=== PATIENT | female | born 1985 ===

== ENCOUNTER 2017-07-17 16:45 | Emergency (ER) | payer OTHER ==
[2017-07-17 17:17] VITALS: BP 120/74; PULSE 93; RESP 16; TEMP 98.5; O2SAT 100
--- NOTE | 2017-07-17 18:16 | ED PDOC ---
HPI: CCC, URI, Sore Throat Time Seen by Provider: 07/17/17 16:45 Chief Complaint (Nursing): ENT Problem Chief Complaint (Provider): ENT Problem History Per: Patient History/Exam Limitations: no limitations Onset/Duration Of Symptoms: Persistent (x1 week) Current Symptoms Are (Timing): Still Present Associated Symptoms: Sore Throat, Cough. denies: Fever, Chills Additional Complaint(s): 32 year old female presents to the emergency department with a complaint of sore throat associated with a mild cough and neck swelling ongoing for 1 week. She denied any fever or chills. PMD: none provided Past Medical History Reviewed: Historical Data, Nursing Documentation, Vital Signs Vital Signs: Last Vital Signs Temp 98.5 F 07/17/17 17:15 Pulse 93 H 07/17/17 17:15 Resp 16 07/17/17 17:15 BP 120/74 07/17/17 17:15 Pulse Ox 100 07/17/17 18:26 - Medical History PMH: No Chronic Diseases - Surgical History Surgical History: No Surg Hx - Family History Family History: States: Unknown Family Hx - Social History Current smoker - smoking cessation education provided: No Alcohol: None Drugs: Denies - Immunization History Hx Tetanus Toxoid Vaccination: (not sure) - Home Medications Home Medications: Ambulatory Orders Medication Instructions Recorded Ibuprofen [Motrin] 600 mg PO Q6H PRN #15 tab 02/04/15 Naproxen [Naprosyn] 500 mg PO BID PRN #30 tab 08/20/16 - Allergies Allergies/Adverse Reactions: Allergies Allergy/AdvReac Type Severity Reaction Status Date / Time No Known Allergies Allergy Verified 07/17/17 17:15 Review of Systems ROS Statement: Except As Marked, All Systems Reviewed And Found Negative Constitutional: Negative for: Fever, Chills ENT: Positive for: Throat Pain, Throat Swelling Respiratory: Positive for: Cough (mild) Physical Exam - Reviewed Nursing Documentation Reviewed: Yes Vital Signs Reviewed: Yes - Physical Exam Appears: Positive for: Non-toxic, No Acute Distress ENT: Positive for: Normal ENT Inspection, TM Is/Are (clear bilaterally), Other ( enlarged thyroid noted). Negative for: Pharyngeal Erythema, Tonsillar Exudate Neck: Positive for: Painless ROM, Supple Cardiovascular/Chest: Positive for: Regular Rate, Rhythm, Chest Non Tender Respiratory: Positive for: Normal Breath Sounds. Negative for: Decreased Breath Sounds, Respiratory Distress Neurologic/Psych: Positive for: Alert (x3), Oriented - ECG O2 Sat by Pulse Oximetry: 100 (RA) Pulse Ox Interpretation: Normal - Progress ED Course And Treament: RAPID STREP: NEG Medical Decision Making Medical Decision Making: Initial Impression: Throat pain Initial Plan: * Rapid strep Time: 5 --Discussed with patient the need for outpatient care to follow up for enlarged thyroid palpated in ED with a thyroid ultrasound. Scribe Attestation: Documented by Brooke Whitehead, acting as a scribe for Harjit Grigsby PA-C. Provider Scribe Attestation: All medical record entries made by the Scribe were at my direction and personally dictated by me. I have reviewed the chart and agree that the record accurately reflects my personal performance of the history, physical exam, medical decision making, and the department course for this patient. I have also personally directed, reviewed, and agree with the discharge instructions and disposition. Disposition - Clinical Impression Clinical Impression: Sore throat - Patient ED Disposition Is Patient to be Admitted: No - Disposition Referrals: [facility] [Outside] Disposition: Routine/Home Disposition Time: 19:07 Condition: FAIR Instructions: Sore Throat, Adult (DC) Forms: [employer] (Albanian), [facility] ED School/Work Excuse Print Language: PORTUGUESE
== END 2017-07-17 19:38 | disposition home or self-care (01) ==
LOC: H.ER 16:45
DX: J02.9 Acute pharyngitis, unspecified (principal)

== ENCOUNTER 2018-03-07 14:19 | Observation (INO) | payer MEDICAID, SELFPAY ==
--- NOTE | 2018-03-07 15:36 | ED PDOC ---
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 Otherwise, denies hx of previous symptoms, sick contacts, ear pain, throat pain, chest pain, difficulty breathing, fever, vomiting, and abdominal pain. PMD: [facility] Past Medical History Reviewed: Historical Data, Nursing Documentation, Vital Signs Vital Signs: Last Vital Signs Temp 98.5 F 03/07/18 14:34 Pulse 89 03/07/18 14:34 Resp 16 03/07/18 14:34 BP 115/74 03/07/18 14:34 Pulse Ox 98 03/07/18 14:34 - Medical History PMH: No Chronic Diseases - Surgical History Surgical History: No Surg Hx - Family History Family History: States: Unknown Family Hx - Immunization History Hx Tetanus Toxoid Vaccination: (not sure) - Home Medications Home Medications: Ambulatory Orders Medication Instructions Recorded Amoxicillin/Clavulanate [Augmentin 1 tab PO Q12 #20 tab 03/08/18 875 MG-125 MG] - Allergies Allergies/Adverse Reactions: Allergies Allergy/AdvReac Type Severity Reaction Status Date / Time No Known Allergies Allergy Verified 03/08/18 05:17 Review of Systems ROS Statement: Except As Marked, All Systems Reviewed And Found Negative Constitutional: Positive for: Chills. Negative for: Fever ENT: Positive for: Other (difficulty swallowing). Negative for: Ear Pain, Thr oat Pain Cardiovascular: Negative for: Chest Pain Respiratory: Negative for: Other (trouble breathing) Gastrointestinal: Positive for: Nausea. Negative for: Vomiting, Abdominal Pain Musculoskeletal: Positive for: Neck Pain (and swelling ) Physical Exam - Reviewed Nursing Documentation Reviewed: Yes Vital Signs Reviewed: Yes - Physical Exam Appears: Positive for: No Acute Distress Head Exam: Positive for: ATRAUMATIC, NORMOCEPHALIC Skin: Positive for: Normal Color, Warm, Dry Eye Exam: Positive for: Normal appearance ENT: Positive for: Pharynx Is (erythematous), TM Is/Are (normal bilaterally), Tonsillar Swelling (and erythema bilaterally), Other (floor of mouth soft, not elevated). Negative for: Tonsillar Exudate Neck: Positive for: Painless ROM, Trachea Midline. Negative for: Normal (tender and swollen midline of anterior neck under mandible), Limited ROM, Pain On Movement Of Neck Cardiovascular/Chest: Positive for: Regular Rate, Rhythm Respiratory: Positive for: Normal Breath Sounds. Negative for: Accessory Muscle Use, Respiratory Distress Pulses-Radial (L): 2+ Pulses-Radial (R): 2+ Gastrointestinal/Abdominal: Positive for: Normal Exam, Bowel Sounds (normoactive), Soft. Negative for: Tenderness Back: Positive for: Normal Inspection Extremity: Positive for: Normal ROM, Capillary Refill (<2s). 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 Negative for: Motor/Sensory Deficits - Laboratory Results Result Diagrams: 03/08/18 05:15 03/07/18 16:57 - ECG O2 Sat by Pulse Oximetry: 98 (RA) Pulse Ox Interpretation: Normal Medical Decision Making Medical Decision Making: Time: 1533 Initial Impression: neck swelling and pain, r/o strep, abscess Initial Plan: --Rapid strep --Evaluation by Dr. Spencer 1547 Dr. Spencer at bedside who recommends CT maxillofacial and CT neck soft tissue with contrast. Additionally, CMP, CBC with differential, UA, U-preg, and blood culture ordered. Strep: negative CBC: mild leukocytosis CMP: wnl UA: blood and leuk esterase, likely contaminated Spoke with Dr. Hernandez, who recommends initiation of antibiotic, will give Clindamycin and Zosyn [address] CT Maxillofacial FINDINGS: BONES: No acute fracture or aggressive appearing osseous lesion. The mandible is intact. SOFT TISSUES: There is a rounded cystic mass measuring approximately 2.3 x 1.6 cm within the soft tissues anterior to the thyroid cartilage and at the approximate level of the thyroid gland with some surrounding him infiltration of the fat. SINUSES: The sinuses are clear. ORBITS: The orbits are normal. No retrobulbar hematoma or mass. IMPRESSION: No acute osseous abnormality demonstrated. Cystic mass measuring approximately 2.3 x 1.6 cm with some surrounding inflammatory changes suspected anterior to the thyroid cartilage and this may represent an infected thyroglossal duct cyst. Other etiologies are less likely. Close clinical correlation is advised. 1959 CT Neck Soft Tissue FINDINGS: PHARYNX: Unremarkable appearance of the nasopharynx, oropharyx, and hypopharynx. No pharyngeal mucosal based mass lesions. LARYNX: Normal appearance of the larynx. Unremarkable epiglottis. RETROPHARYNGEAL SPACE: No retropharyngeal soft tissue swelling or gas. SALIVARY GLANDS: Unremarkable appearance of the parotid, submandibular, and sublingual glands. LYMPH NODES: No significant lymphadenopathy. THYROID: The thyroid gland is unremarkable. No nodule is evident. There is a cystic mass measuring approximately 2.2 x 1.4 cm anterior to the thyroid cartilage just above the level of the thyroid gland in the midline with some surrounding inflammatory changes likely representing an infected thyroglossal duct cyst. There is a prominent lymph node measuring 8 mm at the right submental region. BONES: No acute osseous abnormality. No aggressive appearing osseous lesion. IMPRESSION: There is a cystic mass measuring approximately 2.2 x 1.4 cm anterior to the th yroid cartilage just above the level of the thyroid gland likely representing a thyroglossal duct cyst with mild surrounding inflammatory change. Close clinical correlation is advised. 21:[address] Hernandez, who recommends admission for observation through hospitalist service, will see patient in the morning for drainage of cyst. 21:[address] José, who accepts pt for admission to med-surg floor with consult from Dr. Hernandez in the morning for US-guided drainage of thyroglossal duct cyst. Impression: Infected Thyroglossal Duct Cyst Plan: Admission to med-surg floor for US-guided drainage of cyst in the morning Scribe Attestation: Documented by Katty Lu, acting as a scribe for Alena Motter, PA-C Provider Scribe Attestation: All medical record entries made by the Scribe were at my direction and personally dictated by me. I have reviewed the chart and agree that the record accurately reflects my personal performance of the history, physical exam, medic al decision making, and the department course for this patient. I have also personally directed, reviewed, and agree with the discharge instructions and disposition. Disposition - Clinical Impression Clinical Impression: Infection of thyroglossal duct - Patient ED Disposition Is Patient to be Admitted: Yes Discussed With : Jaxson Hernandez Doctor Will See Patient In The: Hospital Counseled Patient/Family Regarding: Studies Performed, Diagnosis - Disposition Disposition Time: 21:00 Condition: GOOD
[2018-03-07 17:14] LABS: BASO # 0.1 K/uL (0.0-0.2); BASO % 0.4 % (0.0-2.0); EOS # 0.2 K/uL (0.0-0.7); HEMOGLOBIN 14.2 g/dL (12.0-16.0); LYMPH # 2.6 K/uL (1.0-4.3); LYMPH % 21.8 % (20.0-40.0); MEAN CELL VOLUME 76.2 fl (81.0-99.0); MEAN CORPUSCULAR HEMOGLOBIN 25.5 pg (27.0-31.0); MEAN CORPUSCULAR HGB CONC 33.5 g/dL (33.0-37.0); MEAN PLATELET VOLUME 8.9 fl (7.2-11.7); MONO % 8.6 % (0.0-10.0); NEUT # 7.9 K/uL (1.8-7.0); NEUT % 67.2 % (50.0-75.0); RBC 5.56 Mil/uL (3.80-5.20); RED CELL DISTRIBUTION WIDTH 14.4 % (11.5-14.5); WHITE BLOOD COUNT 11.8 K/uL (4.8-10.8)
[2018-03-07] MEDS ORDERED: Iohexol 300 100 ML IJ ONE (17:14)
[2018-03-07] MEDS ORDERED: Sodium Chloride 0.9% 50 ML IV ONE (17:14)
[2018-03-07] MEDS ORDERED: Piperacillin/Tazobact 3.375 GM in Sodium Chloride 0.9% 100 ML IVPB STA (17:17)
[2018-03-07 17:22] LABS: ALB/GLOB RATIO 1.2 (1.0-2.1); ALBUMIN 4.3 g/dL (3.5-5.0); ALT/SGPT 33 U/L (9-52); AST/SGOT 32 U/L (14-36); BLOOD UREA NITROGEN 16 mg/dl (7-17); CALCIUM 9.3 mg/dL (8.4-10.2); GFR NON-AFRICAN AMERICAN > 60
[2018-03-07 17:31] LABS: SQUAMOUS EPITHIAL 43 /hpf (0-5); URINE BACTERIA RARE (<OCC); URINE BILIRUBIN NEGATIVE (NEGATIVE); URINE BLOOD LARGE (NEGATIVE); URINE CLARITY CLOUDY (Clear); URINE COLOR YELLOW (YELLOW); URINE GLUCOSE (UA) NEG (Normal); URINE LEUKOCYTE ESTERASE MOD Leu/uL (Negative); URINE PROTEIN NEGATIVE (NEGATIVE)
[2018-03-07] MEDS ORDERED: Piperacillin/Tazobact 3.375 gm Inj IVPB ONE (17:46)
[2018-03-07] MEDS ORDERED: Clindamycin 600mg/50ml D5W 600 MG/50 ML VIAL IVPB STA (17:59)
[2018-03-07] MEDS ORDERED: Dextrose 5%/0.9% NS 1,000 ML IV ONE (21:59)
--- NOTE | 2018-03-07 22:12 | CP.PCM.HP ---
History of Present Illness - History of Present Illness History of Present Illness: This is 32 y/o female with no significant PMH/PSH admitted to [facility] for evaluation and treatment of 3 days history of anterior neck pain. As per patient it started all the sudden, 8-9/10 in severity, no alleviating factors (tylenol/motrin), aggravated by talking and swallowing, associated with b/l ears discomfort and nausea. denies any trauma, fever, vomiting, dizziness, chest pain, SOB, abdominal pain, urinary symptoms or weakness. Denies sick contact, no recent travel PMH: Denies PSH: Denies Allg: NKDA Meds: Denies FH: Denies any cancers or heart conditions SH: Denies alcohol, smoking or drug use ROS: As per HPI ER course: VS: 98.5, 89, 16, 115/74, spo2 98 CBC: wbc 11.8 CMP: stable Rapid strep negative UA reviewed Maxillofacial CT, soft tissu neck CT: cystic mass 2.2 x 1.4 cm anterior to the thyroid cartilage, representing a thyroglossal duct cyst with mild surrounding inflammatory change Present on Admission - Present on Admission Any Indicators Present on Admission: No Past Patient History - Past Social History Smoking Status: Never Smoked - PSYCHIATRIC Hx Substance Use: No - SURGICAL HISTORY Hx Surgeries: No - ANESTHESIA Hx Anesthesia: No Meds Allergies/Adverse Reactions: Allergies Allergy/AdvReac Type Severity Reaction Status Date / Time No Known Allergies Allergy Verified 03/07/18 14:34 Physical Exam - Constitutional Appears: No Acute Distress - Head Exam Head Exam: NORMAL INSPECTION - Eye Exam Eye Exam: EOMI, Normal appearance, PERRL - ENT Exam ENT Exam: Mucous Membranes Moist, Normal External Ear Exam (mildly irritated red ears, no sign of otitis media/exter) Additional comments: oropharynx: mild erythema with Posterior pharyngeal swelling - Neck Exam Neck exam: Positive for: Tenderness Additional comments: Cystic mass below the jaw, movement and pain with swallowing, tender to touch, minimum external skin erythema/ no open wound - Respiratory Exam Respiratory Exam: Clear to Auscultation Bilateral, NORMAL BREATHING PATTERN. absent: Accessory Muscle Use, Chest Wall Tenderness, Prolonged Expiratory Phase, Rhonchi, Wheezes - Cardiovascular Exam Cardiovascular Exam: REGULAR RHYTHM, +S1, +S2 - GI/Abdominal Exam GI & Abdominal Exam: Normal Bowel Sounds, Soft. absent: Tenderness - Extremities Exam Extremities exam: Positive for: normal capillary refill, normal inspection, pedal pulses present. Negative for: pedal edema, tenderness - Back Exam Back exam: NORMAL INSPECTION. absent: CVA tenderness (L), CVA tenderness (R) - Neurological Exam Neurological exam: Alert, CN II-XII Intact, Oriented x3 - Psychiatric Exam Psychiatric exam: Normal Affect - Skin Skin Exam: Dry, Intact, Normal Color, Warm Results - Vital Signs Recent Vital Signs: Last Vital Signs Temp 98.5 F 03/07/18 14:34 Pulse 89 03/07/18 14:34 Resp 16 03/07/18 14:34 BP 115/74 03/07/18 14:34 Pulse Ox 98 03/07/18 20:04 - Labs Result Diagrams: 03/07/18 16:57 03/07/18 16:57 Labs: Laboratory Results - last 24 hr 03/07/18 03/07/18 03/07/18 16:57 16:57 16:57 WBC 11.8 H RBC 5.56 H Hgb 14.2 Hct 42.3 MCV 76.2 L MCH 25.5 L MCHC 33.5 RDW 14.4 Plt Count 230 MPV 8.9 Neut % (Auto) 67.2 Lymph % (Auto) 21.8 [place] % (Auto) 8.6 Eos % (Auto) 2.0 Baso % (Auto) 0.4 Neut # (Auto) 7.9 H Lymph # (Auto) 2.6 [place] # (Auto) 1.0 H Eos # (Auto) 0.2 Baso # (Auto) 0.1 Sodium 140 Potassium 4.3 Chloride 108 H Carbon Dioxide 26 Anion Gap 10 BUN 16 Creatinine 0.7 Est GFR ( Amer) > 60 Est GFR (Non-Af Amer) > 60 Random Glucose 97 Calcium 9.3 Total Bilirubin 0.5 AST 32 ALT 33 Alkaline Phosphatase 80 Total Protein 7.8 Albumin 4.3 Globulin 3.6 Albumin/Globulin Ratio 1.2 Urine Color Urine Clarity Urine pH Ur Specific [place] Urine Protein Urine Glucose (UA) Urine Ketones Urine Blood Urine Nitrate Urine Bilirubin Urine Urobilinogen Ur Leukocyte Esterase Urine RBC (Auto) Urine Microscopic WBC Ur Squamous Epith Cells Urine Bacteria Grp A Beta Strep Ag Negative 03/07/18 16:57 WBC RBC Hgb Hct MCV MCH MCHC RDW Plt Count MPV Neut % (Auto) Lymph % (Auto) [place] % (Auto) Eos % (Auto) Baso % (Auto) Neut # (Auto) Lymph # (Auto) [place] # (Auto) Eos # (Auto) Baso # (Auto) Sodium Potassium Chloride Carbon Dioxide Anion Gap BUN Creatinine Est GFR ( Amer) Est GFR (Non-Af Amer) Random Glucose Calcium Total Bilirubin AST ALT Alkaline Phosphatase Total Protein Albumin Globulin Albumin/Globulin Ratio Urine Color Yellow Urine Clarity Cloudy Urine pH 6.0 Ur Specific [place] 1.021 Urine Protein Negative Urine Glucose (UA) Neg Urine Ketones Negative Urine Blood Large Urine Nitrate Negative Urine Bilirubin Negative Urine Urobilinogen 4.0 H Ur Leukocyte Esterase Mod Urine RBC (Auto) 15 H Urine Microscopic WBC 26 H Ur Squamous Epith Cells 43 H Urine Bacteria Rare Grp A Beta Strep Ag Assessment & Plan - Assessment and Plan (Free Text) Assessment: A/P: 32 y/o female with no significant PMH/PSH admitted to [facility] for evaluation and treatment of 3 days history of infected thyroglossal duct cyst. Infected thyroglossal duct cyst - Maxillofacial CT, soft tissu neck CT: cystic mass 2.2 x 1.4 cm anterior to the thyroid cartilage, representing a thyroglossal duct cyst with mild surrounding inflammatory change/Infected thyroglossal duct cyst. - S/p Clinda and Zosyn in ER - Rapid Strep negative - ENT consult, Dr. Hernandez, follow up recommendations - Consult IR, follow up recommendation - C/w Clinda 600mg Q8H - Pain management - NPO, IVF - Possible IR intervention tomorrow - Follow up Ucx, Bcx and Throat cx - CBC and Coag for AM DVT PPX - SCD for now
[2018-03-08] MEDS ORDERED: Clindamycin 600mg/50ml NS 600 MG/50 ML BAG IVPB SCH (01:00)
[2018-03-08 06:35] LABS: BASO % 0.3 % (0.0-2.0); EOS # 0.2 K/uL (0.0-0.7); EOS % 1.9 % (0.0-4.0); HEMOGLOBIN 13.5 g/dL (12.0-16.0); LYMPH # 2.5 K/uL (1.0-4.3); LYMPH % 25.8 % (20.0-40.0); MEAN CELL VOLUME 76.5 fl (81.0-99.0); MEAN CORPUSCULAR HEMOGLOBIN 25.7 pg (27.0-31.0); MEAN CORPUSCULAR HGB CONC 33.6 g/dL (33.0-37.0); MONO # 0.8 K/uL (0.0-0.8); MONO % 8.7 % (0.0-10.0); NEUT # 6.1 K/uL (1.8-7.0); NEUT % 63.3 % (50.0-75.0); NRBC % 0.1 % (0.0-0.0); RBC 5.24 Mil/uL (3.80-5.20); RED CELL DISTRIBUTION WIDTH 14.1 % (11.5-14.5); WHITE BLOOD COUNT 9.6 K/uL (4.8-10.8)
[2018-03-08 06:57] LABS: INR 1.2; PROTHROMBIN TIME 13.9 Seconds (9.8-13.1)
[2018-03-08 07:00] LABS: PARTIAL THROMBOPLASTIN TIME 32.4 Seconds (25.6-37.1)
--- NOTE | 2018-03-08 10:09 | CP.PCM.PN ---
Subjective - Date & Time of Evaluation Date of Evaluation: 03/08/18 Time of Evaluation: 10:06 - Subjective Subjective: 32 y/o F patient seen and evaluated at the bedside for Neck pain and swelling. Patient states that she had the pain 9-10/10 in her neck when she came to the ED yesterday. Patient states that after receiving Morphine her pain improved to 7/10 on VAS scale. Patient states that she has nausea but she denies any vomiting. Patient denies any trauma, fever, vomiting, dizziness, chest pain, SOB, abdominal pain, urinary symptoms or weakness. Objective - Vital Signs/Intake and Output Vital Signs (last 24 hours): Temp Pulse Resp BP Pulse Ox 98.7 F 81 18 95/55 L 99 03/08/18 08:30 03/08/18 08:30 03/08/18 08:30 03/08/18 08:30 03/08/18 08:30 - Medications Medications: Current Medications Acetaminophen (Tylenol 120mg Supp) 120 mg GA Q6 PRN PRN Reason: Fever >100.4 F Ampicillin Sodium/Sulbactam (Sodium 3 gm/ Sodium Chloride) 100 mls @ 100 mls/hr IVPB 0000,0600,1200,1800 ROBERTO; Protocol Last Admin: 03/08/18 06:29 Dose: 100 mls/hr Morphine Sulfate (Morphine) 2 mg IVP Q6 PRN PRN Reason: Pain, severe (8-10) Last Admin: 03/08/18 03:38 Dose: 2 mg Morphine Sulfate (Morphine) 1 mg IVP Q4 PRN PRN Reason: Pain, moderate (4-7) - Labs Labs: 03/08/18 05:15 03/07/18 16:57 PT 13.9 Seconds (9.8-13.1) H 03/08/18 05:15 INR 1.2 03/08/18 05:15 APTT 32.4 Seconds (25.6-37.1) 03/08/18 05:15 - Constitutional Appears: Well, No Acute Distress - Head Exam Head Exam: ATRAUMATIC, NORMOCEPHALIC - Eye Exam Eye Exam: EOMI, Normal appearance, PERRL Pupil Exam: PERRL - ENT Exam ENT Exam: Mucous Membranes Moist, Normal Exam - Neck Exam Additional comments: Round mass almost 2.3cmX2.3cm with cystic consistency. Pain on palpating the swelling. No erythema, hotness or edema. the mass moves with swallowing. - Respiratory Exam Respiratory Exam: Clear to Ausculation Bilateral, NORMAL BREATHING PATTERN - Cardiovascular Exam Cardiovascular Exam: REGULAR RHYTHM - GI/Abdominal Exam GI & Abdominal Exam: Soft, Normal Bowel Sounds - Extremities Exam Extremities Exam: Normal Capillary Refill, Normal Inspection - Back Exam Back Exam: NORMAL INSPECTION - Neurological Exam Neurological Exam: Alert, Awake, Oriented x3 Neuro motor strength exam: Left Upper Extremity: 5, Right Upper Extremity: 5, Left Lower Extremity: 5, Right Lower Extremity: 5 - Psychiatric Exam Psychiatric exam: Normal Affect, Normal Mood - Skin Skin Exam: Dry, Intact, Normal Color, Warm Assessment and Plan - Assessment and Plan (Free Text) Assessment: 32 y/o female patient seen and evaluated for infected thyroglossal duct cyst. Plan: Infected thyroglossal duct cyst - Maxillofacial CT, soft tissu neck CT: cystic mass 2.2 x 1.4 cm anterior to the thyroid cartilage, representing a thyroglossal duct cyst with mild surrounding inflammatory change/Infected thyroglossal duct cyst. - S/p Clinda and Zosyn in ER - Rapid Strep negative - ENT consult, Dr. Hernandez, follow up recommendations - Clinda 600mg Q8H stopped - Unasyn 3 gm Q6H - Continue Pain management - NPO, IVF - IR intervention today; Follow up - Follow up Ucx, Bcx and Throat cx - CBC and Coag for AM
[2018-03-08] MEDS ORDERED: Lidocaine 1% Inj (20ml) ONE (11:38)
--- NOTE | 2018-03-08 11:49 | PCM.SURG1 ---
Surgeon's Initial Post Op Note - Surgeon's Notes Surgeon: Irene Transfer Table Operator Helper: None Type of Anesthesia: Local Pre-Operative Diagnosis: Thyroglossal duct cyst Operative Findings: Thyroglossal duct cyst Post-Operative Diagnosis: Thyroglossal duct cyst Operation Performed: Thyroglossal duct cyst aspiration Specimen/Specimens Removed: Approx 5 cc of purulent fluid aspirated. Estimated Blood Loss: EBL {In ML}: 1 Date of Surgery/Procedure: 03/08/18 Time of Surgery/Procedure: 11:40
--- NOTE | 2018-03-08 11:51 | CT ---
Date of service: 03/07/2018 PROCEDURE: CT NECK WITH CONTRAST HISTORY: throat/neck swelling COMPARISON: None available. TECHNIQUE: CT of the neck with intravenous contrast. Coronal and sagittal reformats generated. Intravenous contrast dose: 95 cc Omnipaque 300 Radiation dose: Total exam DLP = 156.77 mGy-cm. This CT exam was performed using one or more of the following dose reduction techniques: Automated exposure control, adjustment of the mA and/or kV according to patient size, and/or use of iterative reconstruction technique. FINDINGS: NASOPHARYNX: Unremarkable. SUPRAHYOID NECK: Tonsillar hypertrophy without evidence of peritonsillar abscess. Mild asymmetry of the palatine tonsils left more prominent than the right. No prevertebral or retropharyngeal inflammatory process. INFRAHYOID NECK: Unremarkable larynx, hypopharynx, and supraglottic space. Vocal cords intact. MASS: None. GLANDS: Parotid and submandibular glands unremarkable. Normal size thyroid gland, without nodule. LYMPH NODES: Normal. No lymphadenopathy. CERVICAL SPINE: No fracture or focal lesion. VASCULAR STRUCTURES: Unremarkable. OTHER FINDINGS: Complex thyroglossal duct cyst measuring 1.9 x 2.2 cm. The capsule is thickened and there are adjacent submandibular inflammatory changes. IMPRESSION: Infected thyroglossal duct cyst. Adjacent inflammatory changes attest to the acuity of this process. Tonsillar hypertrophy without focal abscess. Concordant results (preliminary interpretation) provided by [facility]. Procedure Completed: 18:15. Preliminary Report: Dictated and Authenticated: 19:59. Final Interpretation: 11:47. March 08, 2018
--- NOTE | 2018-03-08 15:08 | CP.PCM.DIS ---
Provider - Provider Date of Admission: 03/07/18 21:31 Attending physician: Danny José MD Time Spent in preparation of Discharge (in minutes): 30 Hospital Course - Lab Results Lab Results: Most Recent Lab Values WBC 9.6 K/uL (4.8-10.8) 03/08/18 05:15 RBC 5.24 Mil/uL (3.80-5.20) H 03/08/18 05:15 Hgb 13.5 g/dL (12.0-16.0) 03/08/18 05:15 Hct 40.1 % (34.0-47.0) 03/08/18 05:15 MCV 76.5 fl (81.0-99.0) L 03/08/18 05:15 MCH 25.7 pg (27.0-31.0) L 03/08/18 05:15 MCHC 33.6 g/dL (33.0-37.0) 03/08/18 05:15 RDW 14.1 % (11.5-14.5) 03/08/18 05:15 Plt Count 197 K/uL (130-400) 03/08/18 05:15 MPV 9.0 fl (7.2-11.7) 03/08/18 05:15 Neut % (Auto) 63.3 % (50.0-75.0) 03/08/18 05:15 Lymph % (Auto) 25.8 % (20.0-40.0) 03/08/18 05:15 [place] % (Auto) 8.7 % (0.0-10.0) 03/08/18 05:15 Eos % (Auto) 1.9 % (0.0-4.0) 03/08/18 05:15 Baso % (Auto) 0.3 % (0.0-2.0) 03/08/18 05:15 Neut # (Auto) 6.1 K/uL (1.8-7.0) 03/08/18 05:15 Lymph # (Auto) 2.5 K/uL (1.0-4.3) 03/08/18 05:15 [place] # (Auto) 0.8 K/uL (0.0-0.8) 03/08/18 05:15 Eos # (Auto) 0.2 K/uL (0.0-0.7) 03/08/18 05:15 Baso # (Auto) 0.0 K/uL (0.0-0.2) 03/08/18 05:15 PT 13.9 Seconds (9.8-13.1) H 03/08/18 05:15 INR 1.2 03/08/18 05:15 APTT 30.9 Seconds (25.6-37.1) 03/08/18 10:23 Sodium 140 mmol/l (132-148) 03/07/18 16:57 Potassium 4.3 MMOL/L (3.6-5.0) 03/07/18 16:57 Chloride 108 mmol/L (98-107) H 03/07/18 16:57 Carbon Dioxide 26 mmol/L (22-30) 03/07/18 16:57 Anion Gap 10 (10-20) 03/07/18 16:57 BUN 16 mg/dl (7-17) 03/07/18 16:57 Creatinine 0.7 mg/dl (0.7-1.2) 03/07/18 16:57 Est GFR ( Amer) > 60 03/07/18 16:57 Est GFR (Non-Af Amer) > 60 03/07/18 16:57 Random Glucose 97 mg/dL (65-105) 03/07/18 16:57 Calcium 9.3 mg/dL (8.4-10.2) 03/07/18 16:57 Total Bilirubin 0.5 mg/dl (0.2-1.3) 03/07/18 16:57 AST 32 U/L (14-36) 03/07/18 16:57 ALT 33 U/L (9-52) 03/07/18 16:57 Alkaline Phosphatase 80 U/L (38-126) 03/07/18 16:57 Total Protein 7.8 G/DL (6.3-8.2) 03/07/18 16:57 Albumin 4.3 g/dL (3.5-5.0) 03/07/18 16:57 Globulin 3.6 gm/dL (2.2-3.9) 03/07/18 16:57 Albumin/Globulin Ratio 1.2 (1.0-2.1) 11/07/18 16:57 Urine Color Yellow (YELLOW) 03/07/18 16:57 Urine Clarity Cloudy (Clear) 03/07/18 16:57 Urine pH 6.0 (5.0-8.0) 03/07/18 16:57 Ur Specific [place] 1.021 (1.003-1.030) 03/07/18 16:57 Urine Protein Negative mg/dL (NEGATIVE) 03/07/18 16:57 Urine Glucose (UA) Neg mg/dL (Normal) 03/07/18 16:57 Urine Ketones Negative mg/dL (NEGATIVE) 03/07/18 16:57 Urine Blood Large (NEGATIVE) 03/07/18 16:57 Urine Nitrate Negative (NEGATIVE) 03/07/18 16:57 Urine Bilirubin Negative (NEGATIVE) 03/07/18 16:57 Urine Urobilinogen 4.0 mg/dL (0.2-1.0) H 03/07/18 16:57 Ur Leukocyte Esterase Mod [place]/uL (Negative) 03/07/18 16:57 Urine RBC (Auto) 15 /hpf (0-3) H 03/07/18 16:57 Urine Microscopic WBC 26 /hpf (0-5) H 03/07/18 16:57 Ur Squamous Epith Cells 43 /hpf (0-5) H 03/07/18 16:57 Urine Bacteria Rare (<OCC) 03/07/18 16:57 Influenza Typ A,B (EIA) Negative for flu a/b (NEGATIVE) 03/07/18 23:40 Grp A Beta Strep Ag Negative (NEGATIVE) 03/07/18 16:57 - Hospital Course Hospital Course: Infected thyroglossal duct cyst - Maxillofacial CT, soft tissue neck CT: cystic mass 2.2 x 1.4 cm anterior to the thyroid cartilage, representing a thyroglossal duct cyst with mild surrounding inflammatory change/Infected thyroglossal duct cyst. - Rapid Strep negative - ENT consulted, Dr. Hernandez. - Continue Pain management - advance to regular diet. - IR intervention done today with aspiration of about 5 cc of fluid from the thyroglossal cyst. - Amoxicillin/Clavulanate [Augmentin 875 MG-125 MG] 1 tab PO Q12 #20 tab. - Follow up Ucx, Bcx and Throat cx - CBC and Coag; Follow up Patient has been found to have Infected thyroglossal cyst on presentation. Patient was started on Zosyn and Clindamycin then Unasyn 3 gms Q6H. IR did Cyst aspiration under local anesthesia. Patient was discharged home with Patient remained totally asymptomatic during hospital stay. After an uneventful hospital stay the patient was discharged home. There were no acute changes to her prescribed medical regimen. Discharge Exam - Head Exam Head Exam: ATRAUMATIC, NORMOCEPHALIC - Eye Exam Eye Exam: EOMI, Normal appearance, PERRL Pupil Exam: PERRL - ENT Exam ENT Exam: Mucous Membranes Dry - Neck Exam Additional comments: Pain on on palpation of the site of the aspirated thyroglossal cyst. No erythema, hotness or edema. - Respiratory Exam Respiratory Exam: Clear to PA & Lateral, NORMAL BREATHING PATTERN, UNREMARKABLE - Cardiovascular Exam Cardiovascular Exam: REGULAR RHYTHM - GI/Abdominal Exam GI & Abdominal Exam: Normal Bowel Sounds, Soft, Unremarkable - Extremities Exam Extremities exam: normal capillary refill, normal inspection - Back Exam Back exam: NORMAL INSPECTION - Neurological Exam Neurological exam: Alert, Oriented x3 - Psychiatric Exam Psychiatric exam: Normal Affect, Normal Mood - Skin Skin Exam: Dry, Intact, Normal Color, Warm Discharge Plan - Discharge Medications Prescriptions: Amoxicillin/Clavulanate [Augmentin 875 MG-125 MG] 1 tab PO Q12 #20 tab - Follow Up Plan Condition: GOOD Disposition: HOME/ ROUTINE Additional Instructions: take antibiotics with as prescribed for all 10 days follow up at the [facility] within 1 week if any symptoms return or worsen please return to ED for further evaluation and treatment Referrals: [facility] [place] [Outside]
--- NOTE | 2018-03-08 16:43 | US ---
Ultrasound-guided drainage HISTORY: Infected thyroglossal duct cyst. COMPARISON: Comparison is made to CT scan of the neck from 03/07/2018. Procedure and FINDINGS: Informed consent was obtained from the patient after discussing relative risks and benefits. This has been done with the help of a supervisor furnace process. The midline neck was prepped and draped in the usual sterile techniques. 1 percent lidocaine was used to anesthetize the skin and the underlying soft tissues. Ultrasound guidance was used to access the cystic structure in the midline of the neck using a 5 Sw[place] centesis catheter. Approximately 5 cc frankly purulent fluid was aspirated. Fluid was sent out for microbiologic analysis. Post drainage image demonstrated near complete collapse of the previously seen cystic structure. Patient tolerated the procedure well. Impression: Ultrasound-guided drainage of midline neck cyst presumed to be thyroglossal duct cyst.
[2018-03-08 16:54] VITALS: BP 109/67; PULSE 92; RESP 20; TEMP 98
[2018-03-09 00:27] VITALS: O2SAT 98
== END 2018-03-08 17:00 | disposition home or self-care (01) ==
LOC: H.ER 14:19 → H.ERHOLD 21:31 → H.PEDS 03-08 02:50
PROVIDERS: ADMIT Internal Medicine; ATTEND Internal Medicine
DX: Q89.2 Congenital malformations of other endocrine glands (principal); R13.10 Dysphagia, unspecified
CPT/HCPCS: 36415; 60300; 70488; 70491; 80053; 81003; 81025; 85025; 85610; 85730; 87040; 87070; 87086; 87430; 87804; 96365; 96366; 96367; 96375; 96376; 99283; C1729; G0378; J0295; J2270; J2543; J7042; Q9967

== ENCOUNTER 2018-07-13 09:43 | Emergency (ER) | payer MEDICAID, SELFPAY ==
[2018-07-13 09:54] VITALS: O2SAT 100; BMI 27.8
[2018-07-13] MEDS ORDERED: Clindamycin 600mg/50ml D5W 600 MG/50 ML VIAL IVPB STA (10:39)
[2018-07-13] MEDS ORDERED: Piperacillin/Tazobact 3.375 GM in Sodium Chloride 0.9% 100 ML IVPB STA (10:42)
[2018-07-13] MEDS ORDERED: Sodium Chloride 0.9% 1,000 ML IV STA (10:42)
[2018-07-13 11:17] LABS: BASO # 0.1 K/uL (0.0-0.2); BASO % 0.7 % (0.0-2.0); EOS # 0.2 K/uL (0.0-0.7); EOS % 1.8 % (0.0-4.0); HEMOGLOBIN 13.6 g/dL (12.0-16.0); LYMPH # 2.1 K/uL (1.0-4.3); MEAN CELL VOLUME 75.4 fl (81.0-99.0); MEAN CORPUSCULAR HEMOGLOBIN 25.5 pg (27.0-31.0); MEAN CORPUSCULAR HGB CONC 33.9 g/dL (33.0-37.0); MEAN PLATELET VOLUME 8.7 fl (7.2-11.7); MONO # 0.6 K/uL (0.0-0.8); MONO % 6.2 % (0.0-10.0); NEUT # 6.9 K/uL (1.8-7.0); NEUT % 70.3 % (50.0-75.0); NRBC % 0.1 % (0.0-0.0); RBC 5.31 Mil/uL (3.80-5.20); WHITE BLOOD COUNT 9.8 K/uL (4.8-10.8)
[2018-07-13] MEDS ORDERED: Piperacillin/Tazobact 3.375 gm Inj IVPB ONE (11:19)
[2018-07-13 11:23] LABS: INR 1.2; PROTHROMBIN TIME 13.4 Seconds (9.8-13.1)
[2018-07-13 11:25] LABS: PARTIAL THROMBOPLASTIN TIME 32.2 Seconds (25.6-37.1)
[2018-07-13 11:29] LABS: ALB/GLOB RATIO 1.1 (1.0-2.1); ALBUMIN 4.2 g/dL (3.5-5.0); ALT/SGPT 27 U/L (9-52); AST/SGOT 26 U/L (14-36); BLOOD UREA NITROGEN 22 mg/dl (7-17); CALCIUM 9.5 mg/dL (8.4-10.2); GFR NON-AFRICAN AMERICAN > 60
--- NOTE | 2018-07-13 11:58 | ED PDOC ---
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 states 5 days ago she developed a swelling on the front of her neck associated with pain with swallowing. Further states she had similar symptoms on 03/2018 which were more severe compared to now. Denies fever, SOB, rash, cough, congestion. Past Medical History Reviewed: Historical Data, Nursing Documentation, Vital Signs Vital Signs: Last Vital Signs Temp 97.6 F 07/13/18 09:53 Pulse 85 07/13/18 09:53 Resp 18 07/13/18 09:53 BP 108/72 07/13/18 09:53 Pulse Ox 100 07/13/18 09:53 - Medical History PMH: Denies: Chronic Kidney Disease - Surgical History Other surgeries: neck cyst drainage 03/2018 - Family History Family History: States: No Known Family Hx - Immunization History Hx Tetanus Toxoid Vaccination: No (not sure) Hx Influenza Vaccination: No Hx Pneumococcal Vaccination: No - Home Medications Home Medications: Ambulatory Orders Medication Instructions Recorded Amoxicillin/Clavulanate [Augmentin 1 tab PO BID #20 tab 07/13/18 875 MG-125 MG] - Allergies Allergies/Adverse Reactions: Allergies Allergy/AdvReac Type Severity Reaction Status Date / Time No Known Allergies Allergy Verified 03/08/18 05:17 Review of Systems ROS Statement: Except As Marked, All Systems Reviewed And Found Negative ENT: Positive for: Throat Pain - Laboratory Results Result Diagrams: 07/13/18 11:03 07/13/18 11:03 Lab Results: PT 13.4 Seconds (9.8-13.1) H 07/13/18 11:03 INR 1.2 07/13/18 11:03 APTT 32.2 Seconds (25.6-37.1) 07/13/18 11:03 Total Bilirubin 0.4 mg/dl (0.2-1.3) 07/13/18 11:03 AST 26 U/L (14-36) 07/13/18 11:03 ALT 27 U/L (9-52) 07/13/18 11:03 Alkaline Phosphatase 72 U/L (38-126) 07/13/18 11:03 Total Protein 7.9 G/DL (6.3-8.2) 07/13/18 11:03 Albumin 4.2 g/dL (3.5-5.0) 07/13/18 11:03 Globulin 3.7 gm/dL (2.2-3.9) 07/13/18 11:03 Albumin/Globulin Ratio 1.1 (1.0-2.1) 07/13/18 11:03 Urine POC: Negative - ECG O2 Sat by Pulse Oximetry: 100 - Progress ED Course And Treament: Labs, CT neck/maxillofacial w/IV contrast ordered. Upon review of previous admission, pt. was given Clindamycin and Zosyn for the infection and then chaged to Unasyn as pt. had UTI as well. Clindamycin, Zosyn, blood culture x 2 ordered. Pt. kept NPO. IV NS bolus x [address] neck: Findings likely reflect an infected or otherwise inflamed thyroglossal duct cyst 2.1 cm greatest dimension at the anterior infrahyoid neck left parasagittal in position. Differential diagnosis consists of ectopic thyroid cyst or neoplasm, epidermoid cyst or even less likely, branchial cleft cyst. 14:[address] Conti who reviewed CT and states likely patient will not need drainage at this time and will only require oral antibiotics and outpatient care in his clinic. Dr. Conti will call back in 2 hours to see how patient is doing and is requesting that patient be given food at this time. On reevaluation using [employer] # [id number], patient reports feeling much better and is no acute distress speaking in full sentences. Patient has no muffled voice and is informed of results and plan. She agrees to plan. Patient will be given food and she does confirm again that these symptoms are not as severe as previous episode back in March. 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 states she is feeling much better. Spoke with Dr. Conti again and states pt. can be dc'd and is to be prescribed Augmentin 875mg PO BID x 10 days and is to f/u in his office on Monday morning. Pt. informed of plan and care. Agrees. Return precautions provided. Pt. verbalized correct understanding of plan and care. Disposition - Clinical Impression Clinical Impression: Thyroglossal duct cyst - Patient ED Disposition Is Patient to be Admitted: No - Disposition Referrals: Travon Conti MD [Staff Provider] - Disposition: Routine/Home Disposition Time: 17:03 Condition: IMPROVED Additional Instructions: FOLLOW UP WITH DR. CONTI THIS COMING MONDAY MORNING WITHOUT FAIL RETURN TO ED IMMEDIATELY IF SYMPTOMS WORSEN EDER AG, thank you for letting us take care of you today. Your provider was Yee Goodrich MD and you were treated for THROAT PAIN. The emergency medical care you received today was directed at your acute symptoms. If you were prescribed any medication, please fill it and take as directed. It may take several days for your symptoms to resolve. Return to the Emergency Department if your symptoms worsen, do not improve, or if you have any other problems. Please contact your doctor or call one of the physicians/clinics you have been referred to that are listed on the Patient Visit Information form that is included in your discharge packet. Bring any paperwork you were given at discharge with you along with any medications you are taking to your follow up visit. Our treatment cannot replace ongoing medical care by a primary care provider outside of the emergency department. Thank you for allowing the [facility] team to be part of your care today. If you had an X-Ray or CT scan: A Radiologist will review the ED reading if any change in treatment is needed we will contact you. If you had a blood, urine, or wound culture: It will take several days for the results, if any change in treatment is needed we will contact you. If you had an STI test: It will take 48 hours for the results. Please call after 1 week if you have not heard back. Prescriptions: Amoxicillin/Clavulanate [Augmentin 875 MG-125 MG] 1 tab PO BID #20 tab Instructions: General (DC) Print Language: SWEDISH
[2018-07-13] MEDS ORDERED: Iohexol 300 100 ML IJ ONE (12:05)
[2018-07-13] MEDS ORDERED: Sodium Chloride 0.9% 50 ML IV ONE (12:05)
--- NOTE | 2018-07-13 13:36 | CT ---
Date of service: 07/13/2018 PROCEDURE: CT NECK WITH CONTRAST HISTORY: neck swelling, hx of infected thyroglossal cyst COMPARISON: None available. TECHNIQUE: CT of the neck with intravenous contrast. Coronal and sagittal reformats generated. Intravenous contrast dose: Omnipaque 300, 100 cc Radiation dose: Total exam DLP = 268.62 mGy-cm. This CT exam was performed using one or more of the following dose reduction techniques: Automated exposure control, adjustment of the mA and/or kV according to patient size, and/or use of iterative reconstruction technique. FINDINGS: NASOPHARYNX: Unremarkable. SUPRAHYOID NECK: Unremarkable oropharynx, oral cavity, parapharyngeal space and retropharyngeal space. INFRAHYOID NECK: Unremarkable larynx, hypopharynx, and supraglottic space. Vocal cords intact. However, there is a 2.1 x 1.7 cm complex cystic lesion possible low-density nodule given 34 Hounsfield unit density thin peripherally enhancing peripheral abutting the thyrohyoid muscles, slightly left paracentral in position at the anterior infrahyoid neck. Trace fatty reaction is seen surrounding this cystic lesion in the diagnosis is felt to most likely reflect thyroglossal duct cyst with infectious or inflammatory change associated. Clinically correlate further. GLANDS: Parotid and submandibular glands unremarkable. Normal size thyroid gland, without nodule. LYMPH NODES: No significant lymphadenopathy. CERVICAL SPINE: No fracture or focal lesion. VASCULAR STRUCTURES: Unremarkable. OTHER FINDINGS: Incidental moderate left maxillary sinus disease. IMPRESSION: Findings likely reflect an infected or otherwise inflamed thyroglossal duct cyst 2.1 cm greatest dimension at the anterior infrahyoid neck left parasagittal in position. Differential diagnosis consists of ectopic thyroid cyst or neoplasm, epidermoid cyst or even less likely, branchial cleft cyst.
--- NOTE | 2018-07-13 13:39 | CT ---
Date of service: 07/13/2018 PROCEDURE: CT MAXILLOFACIAL BONES WITH CONTRAST HISTORY: neck swelling, hx of infected thyroglossal cyst COMPARISON: None. TECHNIQUE: Contiguous axial CT images of the maxillofacial bones were obtained following administration of IV contrast. Coronal and sagittal reformats were generated. Intravenous contrast Dose: Maxillofacial and neck CT both done at the same time with single dose of contrast, Omnipaque 300, 100 cc. Radiation dose: Total exam DLP = 764.36 mGy-cm. This CT exam was performed using one or more of the following dose reduction techniques: Automated exposure control, adjustment of the mA and/or kV according to patient size, and/or use of iterative reconstruction technique. FINDINGS: No suspicious contrast enhancement is appreciated throughout the facial soft tissues including the orbits, bilaterally. No suspicious soft tissue findings in general. No fracture identified. NASAL BONES: Unremarkable. ORBITS: Unremarkable. PARANASAL SINUSES/ MASTOIDS: Multifocal sinus disease identified affecting left maxillary and multiple left ethmoid sinuses. MAXILLA: Unremarkable. MANDIBLE/ TEMPOROMANDIBULAR JOINTS: Unremarkable. SKULL BASE: Unremarkable. TEMPORAL BONES: Middle ears and mastoid grossly unremarkable. OTHER FINDINGS: None. IMPRESSION: No abnormal contrast enhancement throughout facial CT. Note is made of [id number] sinus disease affecting multifocal left ethmoid air cells and the left maxillary sinus.
[2018-07-13 17:27] VITALS: BP 106/64; PULSE 83; RESP 16; TEMP 97.5
== END 2018-07-13 17:20 | disposition home or self-care (01) ==
LOC: H.ER 09:43
DX: Q89.2 Congenital malformations of other endocrine glands (principal)
CPT/HCPCS: 70488; 70491; 80053; 81025; 85025; 85610; 85730; 86850; 86900; 87040; 87070; 87430; 96374; 96375; 99283; J2270; J2405; J2543; J7030; Q9967